=== PATIENT | male | born 1990 | race Two or more races ===

== ENCOUNTER 2017-02-02 10:32 | Emergency (ER) | payer SELFPAY ==
[~2017-02-02] VITALS: Ht 167.6 cm; Wt 70.3 kg
[~2017-02-02 10:32] MED LIST: ZITHROMAX250 MG PO
== END 2017-02-02 10:47 | disposition home or self-care (01) ==
LOC: ED 10:32
DX: Z00.8 Encounter for other general examination (principal)

== ENCOUNTER 2019-06-03 08:29 | Emergency (ER) | payer OTHER ==
[~2019-06-03] VITALS: Ht 167.6 cm; Wt 70.3 kg
== END 2019-06-03 08:53 | disposition home or self-care (01) ==
LOC: ED 08:29
DX: Z53.21 Procedure and treatment not carried out due to patient leaving prior to being seen by health care provider (principal)

== ENCOUNTER 2024-03-02 17:05 | Emergency (ER) | payer OTHER ==
[~2024-03-02] VITALS: Ht 167.6 cm; Wt 72.5 kg
[2024-03-02 17:18] LABS: EOSINOPHILS 1.3 % (0-6); HEMATOCRIT 45.2 % (35.0-50.0); HEMOGLOBIN 15.3 g/dL (12.0-18.0); LYMPHOCYTES 20.4 % (24-44); MCH 29.8 (27-36); MCV 87.8 fl (81-99); NEUTROPHILS 65.3 % (39-80); PLATELET COUNT 254 K/uL (140-440); RBC 5.14 M/ul (4.3-5.7); RDW 14.3 (10.5-15.0)
[2024-03-02] MEDS ORDERED: ACETAMINOPHEN 500 MG TAB PO ONE (17:30)
[2024-03-02] MEDS ORDERED: SODIUM CHLORIDE 0.9% 1,000 ML IV PRN (17:30)
[2024-03-02 17:42] LABS: ALBUMIN 4.4 g/dL (3.4-5.0); ALBUMIN/GLOBULIN RATIO 1.16 (1.1-2.4); ALCOHOL, MEDICAL <3 ng/dL (<3); ALKALINE PHOSPHATASE 72 U/L (46-116); ALT (SGPT) 50 U/L (14-59); ANION GAP 19.8 (7-21); AST (SGOT) 78 U/L (15-37); BILIRUBIN, TOTAL 0.9 ng/dL (0.2-1.0); BUN/CREATININE RATIO 16.53 (6.0-28.6); CALCIUM 9.9 mg/dL (8.5-10.1); CARBON DIOXIDE 23 mmol/L (21-32); CHLORIDE 103 mmol/L (98-107); CREATININE, SERUM 1.27 mg/dL (0.70-1.30); GLOMERULAR FILTRATION RATE,EST 77 mL/min (>60); POTASSIUM 3.8 mmol/L (3.5-5.1); PROTEIN, TOTAL 8.2 g/dL (6.4-8.2); TSH, 3RD GENERATION 3.131 uIU/mL (0.358-3.740); UREA NITROGEN 21 mg/dL (7-18)
[2024-03-02 17:51] LABS: ACETAMINOPHEN 0 ug/mL (10-30); SALICYLATE 0.5 mg/dL (2.8-20.0)
[2024-03-02 19:26] LABS: BILIRUBIN, URINE NEGATIVE (negative); BLOOD/HGB, URINE NEGATIVE (Negative); KETONE, URINE TRACE (Negative); LEUK ESTERASE, URINE NEGATIVE (negative); NITRITE, URINE NEGATIVE (negative)
[2024-03-02 19:49] LABS: AMPHETAMINES, URINE POSITIVE (NEGATIVE); BARBITURATES, URINE NEGATIVE (NEGATIVE); BENZODIAZEPINE, URINE NEGATIVE (NEGATIVE); BUPRENORPHINE, URINE NEGATIVE (NEGATIVE); CANNABINOID, URINE NEGATIVE (NEGATIVE); COCAINE, URINE NEGATIVE (NEGATIVE); ECSTASY, URINE POSITIVE (NEGATIVE); FENTANYL, URINE NEGATIVE (NEGATIVE); METHADONE, URINE NEGATIVE (NEGATIVE); OPIATES, URINE NEGATIVE (NEGATIVE); OXYCODONE, URINE NEGATIVE (NEGATIVE); PHENCYCLIDINE, URINE NEGATIVE (NEGATIVE)
[2024-03-02 19:52] LABS: LACTIC ACID, BLOOD 0.9 mmol/L (0.4-2.0)
[2024-03-02 20:08] VITALS: BP 116/90
--- NOTE | 2024-03-04 12:27 | EKG ---
[facility] [address] [place], [place] [address] Signed Sinus tachycardia Otherwise normal ECG No previous ECGs available Confirmed by Margo Wang MD ([id number]) on 03/04/2024 12:26:44 PM Electronically Signed By: MARGO WANG DO 03/04/24 1227 PATIENT NAME: VJ RUSSO Electrocardiogram DATE OF : 89 PHYSICIAN: MARGO WANG DO REPORT #: [id number] REPORT IS CONFIDENTIAL AND NOT TO BE RELEASED WITHOUT AUTHORIZATION
== END 2024-03-02 20:21 | disposition home or self-care (01) ==
LOC: ED 17:05
PROVIDERS: Emergency Medicine; Internal Medicine
DX: R56.9 Unspecified convulsions (principal); F15.90 Other stimulant use, unspecified, uncomplicated; R00.0 Tachycardia, unspecified; F17.200 Nicotine dependence, unspecified, uncomplicated
CPT/HCPCS: 36415; 70450; 71045; 80053; 80307; 81003; 82140; 83605; 84443; 85025; 93005; 93010; 96360; 96361; 99285-25; A9270; G0480; J7030